=== PATIENT | male | born 1985 | race Caucasian/White ===

== ENCOUNTER 2019-08-28 12:55 | Emergency (ER) | payer SELFPAY ==
[~2019-08-28] VITALS: Ht 188 cm; Wt 73.0 kg
[2019-08-28] MEDS ORDERED: FLUORESCEIN SODIUM 1MG/STRIP RIGHTEYE ONE (15:00)
[2019-08-28] MEDS ORDERED: TETRACAINE 0.5% OPHTH DROPS 4ML RIGHTEYE ONE (15:00)
[2019-08-28 15:32] VITALS: BP 128/75
== END 2019-08-28 15:35 | disposition home or self-care (01) ==
LOC: ER 12:55
DX: S00.11XA Contusion of right eyelid and periocular area, initial encounter (principal); X58.XXXA Exposure to other specified factors, initial encounter; Y93.89 Activity, other specified; Y92.89 Other specified places as the place of occurrence of the external cause; Y99.8 Other external cause status
CPT/HCPCS: 99283; J7040

== ENCOUNTER 2019-11-11 15:01 | Emergency (ER) | payer SELFPAY ==
[~2019-11-11] VITALS: Ht 188 cm; Wt 73.0 kg
[2019-11-11 15:55] VITALS: BP 120/64
== END 2019-11-11 17:35 | disposition left against medical advice (07) ==
LOC: ER 16:18
DX: H57.9 Unspecified disorder of eye and adnexa (principal); Z53.21 Procedure and treatment not carried out due to patient leaving prior to being seen by health care provider